=== PATIENT | male | born 1990 | race African-American/Black ===

== ENCOUNTER → 2017-02-09 | Outpatient (CLI) | payer OTHER ==
[2017-02-09 12:20] LABS: FREE T4 0.76 NG/DL (0.76-1.46)
== END ==
LOC: M LAB 11:12
PROVIDERS: ATTEND Internal Medicine Endocrinology, Diabetes & Metabolism
DX: E03.9 Hypothyroidism, unspecified (principal)

== ENCOUNTER → 2017-03-27 | Outpatient (CLI) | payer OTHER ==
[2017-03-27 10:58] LABS: FREE T4 1.02 NG/DL (0.76-1.46)
== END ==
LOC: M LAB 10:03
PROVIDERS: ATTEND Internal Medicine Endocrinology, Diabetes & Metabolism
DX: E03.9 Hypothyroidism, unspecified (principal)